=== PATIENT | female | born 1990 | race American Indian/Alaskan Native ===

== ENCOUNTER 2017-10-20 23:43 | Inpatient (IN) | payer MEDICAID ==
[2017-10-21] MEDS ORDERED: Carboprost Tromethamine 250 MCG/1 ML Amp IM PRN ×2 (01:50→06:00)
[2017-10-21] MEDS ORDERED: Misoprostol 400 MCG (4 X 100 MCG TAB) RECTAL PRN ×2 (01:50→06:00)
[2017-10-21] MEDS ORDERED: Lidocaine 1% 30 ML SDV INJECT PRN (01:50)
[2017-10-21] MEDS ORDERED: Acetaminophen 325 MG Tab PO PRN ×2 (01:50→06:00)
[2017-10-21] MEDS ORDERED: Lactated Ringers 500 ML IV ONE (01:50)
[2017-10-21] MEDS ORDERED: Tranexamic Acid 1,000 MG in Sodium Chloride 0.9% 100 ML IV PRN ×2 (01:50→06:00)
[2017-10-21] MEDS ORDERED: Methylergonovine 0.2 MG/1 ML Amp IM PRN (01:50)
[2017-10-21] MEDS ORDERED: Ondansetron 4 MG/2 ML SDV IV PRN (01:50)
[2017-10-21] MEDS ORDERED: Sodium Chloride 0.9% 10 ML Syringe FLUSH PRN (01:50)
[2017-10-21] MEDS ORDERED: Oxytocin/Normal Saline 30 UNIT/500 ML BAG IV SCH (02:00)
[2017-10-21] MEDS: Lactated Ringers 1,000 ML IV SCH ×3 (02:10→05:17)
[2017-10-21] MEDS ORDERED: fentaNYL 100 MCG/2 ML SDV ONE (03:20)
[2017-10-21] MEDS ORDERED: Bupivacaine 0.75%/D5W 2 ML Amp ONE ×2 (03:20→14:01)
[2017-10-21] MEDS ORDERED: EPINEPHrine 1 MG/ML SDV ONE ×2 (03:23→14:01)
--- NOTE | 2017-10-21 04:39 | PCM.PRNOTE ---
- Free Text/Narrative Note: Requested to provide analgesia to full term patient in severe pain. Upon entering the room, patient is supine in bed complaining of severe abdominal/ pelvic pain and discomfort. Procedure was discussed with patient including adverse outcomes and expectations. Pt is stoic with limited responses even while not carmelo. Pt consented to analgesia, SAB/IT. Pt placed into a sitting position. Landmarks for SAB/IT were identified and marked. Hands were washed and appropriate PPE was applied. Back was prepped with betadine x3. A sterile, transparent, fenestrated drape was applied. Excess betadine was removed. Using 3 mL of a 1% lidocaine solution, a skin wheel was placed at the L3/L4 interspace. A 24 ga (4 inch) Pencan spinal needle was inserted until positive for CSF. Negative for heme or paresthesias. Injected fentanyl 30 mcg , sufentanil 20 mcg, and 9.75 mg of a 0.75% bupivacaine solution with an epi wash. Pt was placed left lateral position for approximately 20 minutes. There were zero complications or adverse outcomes. Pt is still uncomfortable but much less than before we started. She is unable to reliably indicate pain. Legs are heavy and only responds when contraction is at peak. Discussed outcomes/complications of a re-dose with L and D nurse. Will continue to monitor or re-administer if necessary. Procedure Date & Time: 10/21/17 [id number]
[2017-10-21] MEDS ORDERED: Benzocaine/Menthol 20%-0.5% Spray 56 GM Canister TOP PRN (06:00)
[2017-10-21] MEDS ORDERED: Zolpidem 5 MG Tab PO PRN (06:00)
[2017-10-21] MEDS: Prenatal Multivitamin with Calcium/Folic Acid/Iron Tab PO SCH (10:20)
[2017-10-21] MEDS: Ferrous Sulfate 325 MG Tab PO SCH ×2 (10:20→20:48)
--- NOTE | 2017-10-21 12:24 | HP ---
HISTORY OF PRESENT ILLNESS: This patient is a 27-year-old multigravida, who has been followed most of the time by Dr. Loyola recently and by Dr. Vazquez before that. She has had at times sparse care with a few missed visits. By her early ultrasound and LMP, her NANCY is 10/30/2017. She is at 38 weeks 4 days gestation in active labor when she enters the hospital. Antenatally, she is known to be a hepatitis C carrier. Also I note that her urine tox screen is positive for methamphetamine. She does have a history of iron deficiency anemia. She is known to be rubella immune. Blood type is Rh positive, and she did obtain Tdap vaccination on 09/22/2017. Her VDRL and HIV testing was negative. As mentioned above, she is immune to rubella. Hepatitis B surface antigen testing was negative. Please see the EHR for the remainder of her lab data. When the nurses admitted her initially, her cervix was 3 cm, and she was having contractions every 3 to 7 minutes. Her contractions did get closer and stronger as she went into active labor. PAST MEDICAL HISTORY: She denies any lung or heart disorders. She does have positive hepatitis C carrier status. PREVIOUS SURGERY: Cholecystectomy. MEDICATIONS: At present, vitamins with iron. ALLERGIES: No known allergies. FAMILY HISTORY: Please see the EHR. Noncontributory. SOCIAL HISTORY: She was dropped off by a friend, but does not have any significant others with her during labor. Recent urine toxicology screen does reveal positive for methamphetamine. Social work consult will be obtained of course. PHYSICAL EXAMINATION: Vital Signs: Please see the EHR for her within normal limits vital signs. HEENT: The sclerae are nonicteric. Lungs: Clear to A. Heart: Regular rhythm without murmur. Abdomen: Gravid with category 1 heart tones. Term size fetus is palpated in the vertex presentation. Estimated weight 7 pounds. Pelvic: Vaginal exam by myself shortly after 5:00 a.m. reveals a rim of dilation, and amniotomy is done getting clear fluid. heart tones remain category 1. Her lower extremities are normal, and there are some questionable needle tracking areas in the antecubital areas of the upper extremities. IMPRESSION: Term at 38 weeks 4 days gestation. Please see the problem list listed above. I do anticipate spontaneous vaginal delivery, and as mentioned above, her amniotomy gives clear amniotic fluid. Also, it should be mentioned that on her problem list is a past history of ASCUS on Pap. The patient will need repeat Pap smear. [facility] /[id number]
--- NOTE | 2017-10-21 12:45 | DEL ---
DATE: 10/21/2017 The patient has proceeded on very nicely to complete dilation after the amniotomy was done. The patient was initially seen by myself shortly after 5:00 a.m. on 10/21/2017. She did have a normal spontaneous vaginal delivery at 0551 hours on 10/21/2017. The amniotic fluid was clear. She was delivered from the occiput anterior position. There were no episiotomy and no lacerations. She did have a viable girl, who weighed 6 pounds 13 ounces and had scores of 7 and 9. As mentioned above, there were no lacerations. The placenta was delivered spontaneous and intact. Slight amount of uterine atony responded to uterine massage. The bladder was also catheterized at that time getting approximately 250 mL of clear urine. As mentioned above, placenta was spontaneous and intact. Estimated blood loss is approximately 350 mL. The patient and her baby remained very stable in the delivery room area. Please see my dictated history and physical as it pertains to her problem list. Sponge and instrument count was reported as correct. [facility] /[id number]
[2017-10-21] MEDS ORDERED: fentaNYL 100 MCG/2 ML SDV ITHECAL ONE (14:01)
[2017-10-21] MEDS: Ibuprofen 800 MG Tab PO PRN (18:07)
[2017-10-22] MEDS: Ferrous Sulfate 325 MG Tab PO SCH ×2 (08:49→22:39)
[2017-10-22] MEDS: Prenatal Multivitamin with Calcium/Folic Acid/Iron Tab PO SCH (08:49)
[2017-10-22] MEDS: Ibuprofen 800 MG Tab PO PRN ×2 (08:49→22:41)
--- NOTE | 2017-10-22 10:09 | PN ---
DATE: 10/22/2017 SUBJECTIVE: The patient is seen today on day #1. She had a good night last night and has been ambulating and tolerating diet well. She also is taking liquids well. She is bottlefeeding, and her baby continues to do well. OBJECTIVE: Her vital signs are all within normal limits. Her hemoglobin for day #1 is still pending. Her admission hemoglobin was 9.7. The patient is on oral iron because of this history of iron-deficiency nutritional anemia. Her extremities are negative. Negative Gerardo sign. No edema of the lower extremities. Lochia flow is within normal limits by history. ASSESSMENT: Stable course. Her baby also continues to do well. PLAN: The patient is on oral iron. Her hemoglobin is still pending. We will likely discharge the patient home tomorrow on Thursday morning either myself or one of my associates, since I do have to leave town early Thursday a.m. I did review with her thoroughly today some of our instructions with her. She assures me that she will keep in close contact with us if questions or problems in the future. I did tell her that she will need p.o. iron as well as healthy well-balanced nutritional measures, etc. Social Service's consult is still pending. I understand because of her positive urine drug screen for methamphetamines. Also, I did correct the incorrect information that was initially given to me by the nurses regarding her delivery time, and we have also made an addendum to her delivery note to clarify that her vaginal delivery actually did occur at 0555 hours yesterday morning on 10/21/2017. [facility] /[id number]
--- NOTE | 2017-10-22 10:40 | DEL ---
DATE: 10/22/2017 ADDENDUM: HISTORY: This is an addendum to the above delivery note. The nurses have later reported to me that the initial delivery time that they gave me was slightly incorrect, and they have asked me to clarify that the delivery actually occurred at 0555 hours on 10/21/2017 and not 0551 hours as they initially reported to me. [facility] /[id number]
[2017-10-22] MEDS: Docusate Sodium 100 MG Cap PO PRN (22:39)
[2017-10-23] MEDS: Ibuprofen 800 MG Tab PO PRN (08:43)
[2017-10-23] MEDS: Prenatal Multivitamin with Calcium/Folic Acid/Iron Tab PO SCH (08:43)
[2017-10-23] MEDS: Ferrous Sulfate 325 MG Tab PO SCH (08:43)
[2017-10-23] MEDS: Docusate Sodium 100 MG Cap PO PRN (08:47)
--- NOTE | 2017-10-23 11:38 | DISCH ---
PATIENT ADMITTED ON: 10/20/2017 HISTORY OF PRESENT ILLNESS: This patient is a 27-year-old multigravida who has been followed some of the time by Dr. Looyla. Please see my admission history and physical. The patient was at 38 weeks 4 days' gestation by dates and ultrasound. She did enter this facility in labor. Unfortunately, her urine drug screen does reveal positive for methamphetamine. The patient is also known to be hepatitis C carrier. She does have history of iron-deficiency anemia with hemoglobin of 9.7 on admission to this hospital. She is immune to rubella. She has had sparse care. Please see the EHR for the remainder of her laboratory data which is otherwise quite unremarkable. As mentioned above, she is immune to rubella, and she was GBS negative also. HOSPITAL COURSE: The patient did proceed on to have a normal spontaneous vaginal delivery at 0555 hours on 10/21/2017. There was no episiotomy and no lacerations. She did have a viable female who weighed 6 pounds 13 ounces and had scores of 7 and 9. The baby has done well in the period and has been followed by the family practice doctors. The patient is bottlefeeding. The patient continues to do well in the period. She is okay for discharge today on 10/23/2017. She will call us at once if any questions or problems such as excess fever, excess pain, excess bleeding, or any lower extremity/chest pain, pelvic pain, breast pain, etc. She assures me that she will keep in close contact with us. She has had a Social Service's consultation because of her positive urine drug screen and that is on the chart. We did urge her to do gradual progressive ambulation daily. She was asked to avoid intercourse for approximately 6 weeks and to definitely see us in 6 weeks for visit. Her discharge hemoglobin is 9.3, down from 9.7. DISCHARGE MEDICATIONS: Consist of Motrin or ibuprofen 400 mg p.o. q.6h p.r.n. She will otherwise use Tylenol if she does not use Motrin. She will take Colace p.r.n. She also will take her daily vitamin; and she will take over- the-counter iron that she will purchase at [employer], and she will take this once or twice daily with food or meals for at least 4 weeks. FINAL DIAGNOSES: 1. at 38 weeks 4 days' gestation. 2. Sparse care. 3. Iron-deficiency anemia prenatally and with discharge hemoglobin of 9.3. 4. Positive hepatitis C carrier status. 5. Positive urine drug screen with methamphetamine. OPERATIONS AND PROCEDURES: Normal spontaneous vaginal delivery of a viable female who weighed 6 pounds 13 ounces and had scores of 7 and 9 at 0555 hours on 10/21/2017. There was no episiotomy and no laceration. [facility] /[id number]
== END 2017-10-23 13:10 | disposition home or self-care (01) | DRG 774 ==
LOC: DL.OBCHECK 23:43 → UNDOADMOB 10-21 01:50 → DL.OB 10-21 01:50 → OBSVTOIN 10-21 05:51 → INTOOBSV 10-21 05:51 → OBSVTOIN 10-21 05:55 → DL.OB 10-21 05:55 → DL.MS 10-21 13:15
PROVIDERS: ADMIT Obstetrics & Gynecology; ATTEND Obstetrics & Gynecology
PROC: 10E0XZZ Delivery of Products of Conception, External Approach (ICD-10-PCS; principal; 2017-10-21)
PROC: 3E0S3GC Introduction of Other Therapeutic Substance into Epidural Space, Percutaneous Approach (ICD-10-PCS; 2017-10-21)
DX: O99.834 Other infection carrier state complicating childbirth (principal); O99.324 Drug use complicating childbirth; Z37.0 Single live birth; B18.2 Chronic viral hepatitis C; O99.02 Anemia complicating childbirth; D50.9 Iron deficiency anemia, unspecified; Z3A.38 38 weeks gestation of pregnancy; O62.2 Other uterine inertia; F15.90 Other stimulant use, unspecified, uncomplicated
CPT/HCPCS: 01967; 36415; 51701; 59409; 80305-QW; 85018; 85027; A9270-GY; J0171; J2590; J3010; J7120

== ENCOUNTER 2019-02-06 10:14 | Emergency (ER) | payer MEDICAID ==
[2019-02-06 11:11] LABS: ANION GAP 9.5; CHLORIDE,CL 106 mmol/L (101-111); SODIUM,NA 136 mmol/L (135-145)
[2019-02-06] MEDS ORDERED: Ketorolac 30 MG/ML SDV IM ONE (11:13)
[2019-02-06] MEDS ORDERED: GI Cocktail Oral Solution 30 ML PO ONE (11:20)
--- NOTE | 2019-02-06 11:21 | EDM.PDOC ---
ED HPI GENERAL MEDICAL PROBLEM - General Chief Complaint: Abdominal Pain Stated Complaint: RT SIDE PAIN Time Seen by Provider: 02/06/19 11:00 Source of Information: Reports: Patient, RN, RN Notes Reviewed History Limitations: Reports: No Limitations - History of Present Illness INITIAL COMMENTS - FREE TEXT/NARRATIVE: patient presents to ER with right upper quadrant pain which she states started at 0600 today. Patient admits to nausea denies vomiting, denies diarrhea, admits to some constipation. Patient states she is unsure of when her last bowel movement was. Denies chance of . Patient admits to chills at times, unsure of fever. Patient states she has had her gallbladder removed. States she has had this pain in the past before and she will drink large amounts of water and the pain improves. The pain has not improved patient rates the pain a 6/10. Patient admits she does still have her appendix. Onset: Today, Sudden Right Upper Abdomen Pain Score (Numeric/FACES): 6 - Related Data Allergies Allergy/AdvReac Type Severity Reaction Status Date / Time daptomycin Allergy Numbness Verified 02/06/19 10:40 vancomycin Allergy Rash Verified 02/06/19 10:40 Home Meds: Home Meds . [No Known Home Meds] 02/06/19 [History] Past Medical History HEENT History: Reports: Impaired Vision Cardiovascular History: Reports: None Respiratory History: Reports: None Gastrointestinal History: Reports: GERD Genitourinary History: Reports: None DESKTOP PUBLISHING SPECIALIST History: Reports: , Other (See Below) Other DESKTOP PUBLISHING SPECIALIST History: history of pre-eclampsia with HELLP syndrome Musculoskeletal History: Reports: None Neurological History: Reports: None Psychiatric History: Reports: Addiction, Anxiety Endocrine/Metabolic History: Reports: None Hematologic History: Reports: Anemia Immunologic History: Reports: None Oncologic (Cancer) History: Reports: None Dermatologic History: Reports: None - Infectious Disease History Infectious Disease History: Reports: Chicken Pox, Hepatitis C, MRSA - Past Surgical History Head Surgeries/Procedures: Reports: None GI Surgical History: Reports: Cholecystectomy Social & Family History - Family History Family Medical History: Noncontributory - Tobacco Use Smoking Status *Q: Current Every Day Smoker Years of Tobacco use: 10 Packs/Tins Daily: 0.5 - Caffeine Use Caffeine Use: Reports: Coffee, Energy Drinks, Soda - Recreational Drug Use Recreational Drug Use: No ED ROS GENERAL - Review of Systems Review Of Systems: ROS reveals no pertinent complaints other than HPI. ED EXAM, GI/ABD - Physical Exam Exam: See Below Exam Limited By: No Limitations General Appearance: Alert, WD/WN, Anxious, Moderate Distress Eyes: Bilateral: Normal Appearance, EOMI Ears: Normal External Exam, Hearing Grossly Normal Nose: Normal Inspection Throat/Mouth: Normal Inspection, Normal Voice, No Airway Compromise Head: Atraumatic, Normocephalic Neck: Normal Inspection, Supple, Non-Tender, Full Range of Motion Respiratory/Chest: No Respiratory Distress, Lungs Clear, Normal Breath Sounds, No Accessory Muscle Use, Chest Non-Tender Cardiovascular: Normal Peripheral Pulses, Regular Rate, Rhythm, No Edema, No Gallop, No JVD, No Murmur, No Rub GI/Abdominal Exam: Normal Bowel Sounds, Soft, Guarding, Tender (right upper quadrant) (Female) Exam: Deferred Rectal (Female) Exam: Deferred Back Exam: Normal Inspection, Full Range of Motion, NT Extremities: Normal Inspection, Normal Range of Motion, Non-Tender, Normal Capillary Refill, No Pedal Edema Neurological: Alert, Oriented, CN II-XII Intact, Normal Cognition, Normal Gait, Normal Reflexes, No Motor/Sensory Deficits Psychiatric: Normal Affect, Normal Mood, Anxious Skin Exam: Warm, Dry, Intact, Normal Color, No Rash Lymphatic: No Adenopathy Course - Vital Signs Last Recorded V/S: Last Vital Signs Temp 98.7 F 02/06/19 10:40 Pulse 70 02/06/19 10:40 Resp 16 02/06/19 10:40 BP 107/80 02/06/19 10:40 Pulse Ox 100 02/06/19 10:40 - Orders/Labs/Meds Orders: Active Orders 24 hr Category Date Time Status Peripheral IV Care [RC] . DIRECTED Care 02/06/19 11:55 Active Peripheral IV Insertion Adult [OM.PC] Stat Oth 02/06/19 11:54 Ordered Labs: Laboratory Tests 02/06/19 02/06/19 02/06/19 Range/Units 10:44 10:44 10:44 WBC 4.0 L (5.0-10.0) 10^3/uL RBC 4.49 (4.2-5.4) 10^6/uL Hgb 12.5 D (12.0-16.0) g/dL Hct 38.1 (37.0-47.0) % MCV 84.9 (80-100) fL MCH 27.8 (27.0-34.0) pg MCHC 32.8 L (33.0-35.0) g/dL Plt Count 215 D (150-450) 10^3/uL Neut % (Auto) 55.8 (42.2-75.2) % Lymph % (Auto) 37.6 (20.5-50.1) % [place] % (Auto) 5.2 (2-8) % Eos % (Auto) 1.2 (1.0-3.0) % Baso % (Auto) 0.2 (0.0-1.0) % Sodium (135-145) mmol/L Potassium (3.6-5.0) mmol/L Chloride (101-111) mmol/L Carbon Dioxide (21.0-31.0) mmol/L Anion Gap BUN (7-18) mg/dL Creatinine (0.6-1.3) mg/dL Est Cr Clr Drug Dosing mL/min Estimated GFR (MDRD) BUN/Creatinine Ratio Glucose (74-105) mg/dL Calcium (8.4-10.2) mg/dl Total Bilirubin (0.2-1.0) mg/dL AST (10-42) IU/L ALT (10-60) IU/L Alkaline Phosphatase (42-121) IU/L Total Protein (6.7-8.2) g/dl Albumin (3.2-5.5) g/dl Globulin Albumin/Globulin Ratio Amylase (28-100) U/L Lipase (22-51) U/L Urine Color Light yellow (YELLOW) Urine Appearance Clear (CLEAR) Urine pH 7.0 (5.0-9.0) Ur Specific [place] 1.015 (1.005-1.030) Urine Protein Negative (NEGATIVE) Urine Glucose (UA) Negative (NEGATIVE) Urine Ketones Negative (NEGATIVE) Urine Occult Blood Negative (NEGATIVE) Urine Nitrite Negative (NEGATIVE) Urine Bilirubin Negative (NEGATIVE) Urine Urobilinogen 0.2 (0.2-1.0) mg/dL Ur Leukocyte Esterase Negative (NEGATIVE) Urine HCG, Qual Negative Urine Opiates Screen (NEGATIVE) Ur Oxycodone Screen (NEGATIVE) Urine Methadone Screen (NEGATIVE) Ur Barbiturates Screen (NEGATIVE) U Tricyclic Antidepress (NEGATIVE) Ur Phencyclidine Scrn (NEGATIVE) Ur Amphetamine Screen (NEGATIVE) U Methamphetamines Scrn (NEGATIVE) Urine MDMA Screen (NEGATIVE) U Benzodiazepines Scrn (NEGATIVE) Urine Cocaine Screen (NEGATIVE) U Marijuana (THC) Screen (NEGATIVE) Ethyl Alcohol mg/dL 02/06/19 02/06/19 Range/Units 10:44 10:44 WBC (5.0-10.0) 10^3/uL RBC (4.2-5.4) 10^6/uL Hgb (12.0-16.0) g/dL Hct (37.0-47.0) % MCV (80-100) fL MCH (27.0-34.0) pg MCHC (33.0-35.0) g/dL Plt Count (150-450) 10^3/uL Neut % (Auto) (42.2-75.2) % Lymph % (Auto) (20.5-50.1) % [place] % (Auto) (2-8) % Eos % (Auto) (1.0-3.0) % Baso % (Auto) (0.0-1.0) % Sodium 136 (135-145) mmol/L Potassium 4.5 (3.6-5.0) mmol/L Chloride 106 (101-111) mmol/L Carbon Dioxide 25.0 (21.0-31.0) mmol/L Anion Gap 9.5 BUN 8 (7-18) mg/dL Creatinine 0.6 (0.6-1.3) mg/dL Est Cr Clr Drug Dosing 106.28 mL/min Estimated GFR (MDRD) > 60 BUN/Creatinine Ratio 13.33 Glucose 91 (74-105) mg/dL Calcium 8.9 (8.4-10.2) mg/dl Total Bilirubin 0.6 (0.2-1.0) mg/dL AST 109 H (10-42) IU/L ALT 63 H (10-60) IU/L Alkaline Phosphatase 134 H (42-121) IU/L Total Protein 7.5 (6.7-8.2) g/dl Albumin 4.1 (3.2-5.5) g/dl Globulin 3.4 Albumin/Globulin Ratio 1.21 Amylase 57 (28-100) U/L Lipase 23 (22-51) U/L Urine Color (YELLOW) Urine Appearance (CLEAR) Urine pH (5.0-9.0) Ur Specific [place] (1.005-1.030) Urine Protein (NEGATIVE) Urine Glucose (UA) (NEGATIVE) Urine Ketones (NEGATIVE) Urine Occult Blood (NEGATIVE) Urine Nitrite (NEGATIVE) Urine Bilirubin (NEGATIVE) Urine Urobilinogen (0.2-1.0) mg/dL Ur Leukocyte Esterase (NEGATIVE) Urine HCG, Qual Urine Opiates Screen Negative (NEGATIVE) Ur Oxycodone Screen Negative (NEGATIVE) Urine Methadone Screen Negative (NEGATIVE) Ur Barbiturates Screen Negative (NEGATIVE) U Tricyclic Antidepress Negative (NEGATIVE) Ur Phencyclidine Scrn Negative (NEGATIVE) Ur Amphetamine Screen Negative (NEGATIVE) U Methamphetamines Scrn Negative (NEGATIVE) Urine MDMA Screen Negative (NEGATIVE) U Benzodiazepines Scrn Negative (NEGATIVE) Urine Cocaine Screen Negative (NEGATIVE) U Marijuana (THC) Screen Negative (NEGATIVE) Ethyl Alcohol < 5 mg/dL Meds: Medications Discontinued Medications Generic Name Dose Route Start Last Admin Trade Name Freq PRN Reason Stop Dose Admin Al Hydroxide/Mg Hydroxide 30 ml 02/06/19 11:20 02/06/19 11:32 Gi Cocktail PO 02/06/19 11:21 30 ml ONETIME ONE Administration Iopamidol 75 ml 02/06/19 11:55 02/06/19 12:26 Isovue-300 (61%) IVPUSH 02/06/19 11:56 75 ml ONETIME ONE Administration Ketorolac Tromethamine 30 mg 02/06/19 11:13 Toradol IM 02/06/19 11:14 ONETIME ONE Ketorolac Tromethamine 30 mg 02/06/19 11:56 02/06/19 12:03 Toradol IVPUSH 02/06/19 11:57 30 mg ONETIME ONE Administration Sodium Chloride 10 ml 02/06/19 11:55 Saline Flush FLUSH ASDIRECTED PRN Keep Vein Open - Radiology Interpretation Free Text/Narrative:: CT Abdomen/Pelvis with contrast: FINDINGS: Liver: Normal. No mass. Gallbladder and bile ducts: There has been a cholecystectomy. There is intrahepatic biliary and common bile duct dilation greater than expected for a post cholecystectomy patient of this age. Correlate clinically. Consider followup MRCP/ERCP if clinical indications warrant. Pancreas: Normal. No ductal dilation. Spleen: Normal. No splenomegaly. Adrenals: Normal. No mass. Kidneys and ureters: Nonobstructing nephrolithiasis left kidney measuring up to 3 mm. Stomach and bowel: Unremarkable. No obstruction. No mucosal thickening. Appendix: No evidence of appendicitis. Intraperitoneal space: Unremarkable. No free air. No significant fluid collection. Vasculature: Unremarkable. No abdominal aortic aneurysm. Lymph nodes: Unremarkable. No enlarged lymph nodes. Bladder: Unremarkable as visualized. Reproductive: There is an IUD in place. Bones/joints: Unremarkable. No acute fracture. Soft tissues: Unremarkable. IMPRESSION: 1. There has been a cholecystectomy. There is intrahepatic biliary and common bile duct dilation greater than expected for a post cholecystectomy patient of this age. Correlate clinically. Consider followup MRCP/ERCP if clinical indications warrant. 2. Nonobstructing nephrolithiasis left kidney measuring up to 3 mm. Thank you for allowing us to participate in the care of your patient. Dictated and Authenticated by: Sheldon Ochoa MD 02/06/2019 1:07 PM Central Time ([place] & [place]) See rad report Departure - Departure Time of Disposition: 13:09 Disposition: Home, Self-Care 01 Condition: Fair Clinical Impression: Intrahepatic bile duct dilation, Common bile duct dilatation Abdominal pain Qualifiers: Abdominal location: right upper quadrant Qualified Code(s): R10.11 - Right upper quadrant pain - Discharge Information *PRESCRIPTION DRUG MONITORING PROGRAM REVIEWED*: No *COPY OF PRESCRIPTION DRUG MONITORING REPORT IN PATIENT LISETTE: No Instructions: Abdominal Pain, Adult, [id number], Endoscopic Retrograde Cholangiopancreatogram Referrals: Lucina Loyola MD [Primary Care Provider] - Forms: ED Department Discharge Additional Instructions: follow-up with your primary care provider for possible ERCP Drink plenty of water Avoid greasy, fatty foods. May use Tylenol and/or ibuprofen for pain Return to the ER with any worsening of symptoms - My Orders Last 24 Hours: My Active Orders 02/06/19 11:54 Peripheral IV Insertion Adult [OM.PC] Stat 02/06/19 11:55 Peripheral IV Care [RC] . DIRECTED - Assessment/Plan Last 24 Hours: My Active Orders 02/06/19 11:54 Peripheral IV Insertion Adult [OM.PC] Stat 02/06/19 11:55 Peripheral IV Care [RC] . DIRECTED
[2019-02-06] MEDS ORDERED: Sodium Chloride 0.9% 10 ML Syringe FLUSH PRN (11:55)
[2019-02-06] MEDS ORDERED: Iopamidol 612 MG/ML 75 ML Bottle IVPUSH ONE (11:55)
[2019-02-06] MEDS ORDERED: Ketorolac 30 MG/ML SDV IVPUSH ONE (11:56)
== END 2019-02-06 13:31 | disposition home or self-care (01) ==
LOC: DL.ED 10:14
DX: K83.8 Other specified diseases of biliary tract (principal); F17.210 Nicotine dependence, cigarettes, uncomplicated; Z88.1 Allergy status to other antibiotic agents
CPT/HCPCS: 36415; 74177; 80053; 80305-QW; 81003; 81025; 82150; 83690; 85025; 96374; 99284-25; A9270-GY; G0480; J1885; Q9967

== ENCOUNTER 2020-08-31 06:48 | Day surgery (SDC) | payer MEDICAID ==
[~2020-08-31 06:48] MED LIST: Dextrose 5%-0.45% NaCl 1,000 ML IV SCH; Midazolam 1 MG/ML 2 ML SDV ONE; Sodium Chloride 0.9% 10 ML Syringe FLUSH PRN; fentaNYL 100 MCG/2 ML SDV ONE
[2020-08-31] MEDS ORDERED: fentaNYL 100 MCG/2 ML SDV IV ONE ×3 (06:49→07:35)
[2020-08-31] MEDS ORDERED: Midazolam 1 MG/ML 2 ML SDV IV ONE ×4 (06:49→07:40)
[2020-08-31] MEDS ORDERED: Midazolam 1 MG/ML 2 ML SDV ONE (08:03)
--- NOTE | 2020-08-31 11:02 | OR ---
DATE: 08/31/2020 PROCEDURES: Esophagogastroduodenoscopy and multiple pinch biopsies. INSTRUMENT USED: [id number] Olympus video panendoscope. PREMEDICATIONS: No oral or topical anesthesia used. Fentanyl 100 mcg intravenous, Versed 2.5 mg intravenous. The procedure was done under pulse oximetry, BP recording, and quality assurance monitor. INDICATIONS: The patient with persistent abdominal pain, unexplained and not responsive to medical measures, on acid suppressant. Esophagogastroduodenoscopy is performed for detection of any active erosive lesions, Amato esophagus and/or malignancy also under consideration, H pylori status to be determined, endoscopic hemostasis therapy if needed. PROCEDURE IN DETAIL: The scope was passed with ease. Adequate visualization of the esophagus was made from proximal to distal areas. No upper esophageal lesions identified. No distal esophageal stricture. No uphill or downhill esophageal varices. No Jaqueline-Mendieta tear. No evidence of erosive esophagitis by [place] criteria. No esophageal polyp or tumor mass identified. Z-line was seen at around 40 cm distal to the oral verge. No proximal gastric varices noted. Gastric fundus examination by retroflexion showed no polypoid lesions. No gastric ulcer, malignant mass, or vascular ectasia identified. Duodenal bulb showed no ulcer. Visualized second part of the duodenum was unremarkable. Multiple pinch biopsies were taken from the gastric antrum and proximal body and sent for PyloriTek test for H pylori, and if negative in an hour, the tissue is to be sent for histopathology. No bleeding was noted from any of the visualized areas at the completion of examination. Photographs were taken of the duodenal bulb, gastric antrum, fundus, and distal esophagus. IMPRESSION: Normal study. The patient tolerated the procedure well. [facility] /[id number]
== END 2020-08-31 09:45 | disposition home or self-care (01) ==
LOC: DL.ENDO 06:48
PROVIDERS: ATTEND Internal Medicine Gastroenterology
DX: B96.81 Helicobacter pylori [H. pylori] as the cause of diseases classified elsewhere (principal); R10.9 Unspecified abdominal pain
CPT/HCPCS: 87077; J2250; J3010; J7042